=== PATIENT | male | born 2000 | race Caucasian/White ===

== ENCOUNTER 2018-08-05 12:13 | Emergency (ER) | payer BC ==
[2018-08-05 13:19] VITALS: BP 133/73
--- NOTE | 2018-08-05 13:30 | UC ---
Ear Complaint HPI - HPI Summary HPI Summary: Pt c/o sudden onset of reduced hearing from left ear. Pt states he was cleaning his ears last night and thinks he packed the wax in left ear in toward his ear drum. - History of Current Complaint Chief Complaint: UCEar Stated Complaint: LEFT EAR COMPLAINT Time Seen by Provider: 08/05/18 13:26 Hx Obtained From: Patient Onset/Duration: Sudden Onset, Lasting Hours, Still Present Severity Initially: Mild Severity Currently: Mild Pain Intensity: 0 Associated Signs/Symptoms: Positive: Hearing Loss - Allergies/Home Medications Allergies/Adverse Reactions: Allergies Allergy/AdvReac Type Severity Reaction Status Date / Time No Known Allergies Allergy Verified 08/05/18 13:18 Home Medications: Home Medications NK [No Home Medications Reported] 08/05/18 [History Confirmed 08/05/18] PMH/Surg Hx/FS Hx/Imm Hx Previously Healthy: Yes - Surgical History Surgical History: None Surgery Procedure, Year, and Place: none - Family History Known Family History: Positive: Cardiac Disease - Social History Occupation: Student Lives: With Family Alcohol Use: None Substance Use Type: None Smoking Status (MU): Never Smoked Tobacco Have You Smoked in the Last Year: No - Immunization History Vaccination Up to Date: Yes Review of Systems All Other Systems Reviewed And Are Negative: Yes Constitutional: Positive: Negative Skin: Positive: Negative Eyes: Positive: Negative ENT: Positive: Ear Ache - left Respiratory: Positive: Negative Cardiovascular: Positive: Negative Gastrointestinal: Positive: Negative Genitourinary: Positive: Negative Motor: Positive: Negative Neurovascular: Positive: Negative Musculoskeletal: Positive: Negative Neurological: Positive: Negative Psychological: Positive: Negative Is Patient Immunocompromised?: No Physical Exam Triage Information Reviewed: Yes Appearance: Well-Appearing Vital Signs: Initial Vital Signs Temp 98.0 F 08/05/18 13:15 Pulse 73 08/05/18 13:15 Resp 18 08/05/18 13:15 BP 133/73 08/05/18 13:15 Pulse Ox 99 08/05/18 13:15 Vital Signs Reviewed: Yes Eye Exam: Normal ENT: Positive: Other - cerumen impactioin left ear canal Dental Exam: Normal Neck exam: Normal Respiratory Exam: Normal Cardiovascular Exam: Normal Musculoskeletal Exam: Normal Neurological Exam: Normal Psychological Exam: Normal Skin Exam: Normal Ear Complaint Course/Dx - Course Course Of Treatment: moderate amount of cerumen flushed out of left ear canal - Differential Dx/Diagnosis Differential Diagnosis/HQI/PQRI: Cerumen Impaction Provider Diagnosis: Left ear impacted cerumen Discharge - Sign-Out/Discharge Documenting (check all that apply): Patient Departure All imaging exams completed and their final reports reviewed: No Studies - Discharge Plan Condition: Stable Disposition: HOME Patient Education Materials: Cerumen Impaction (ED) Referrals: [facility] [Outside] - If Needed No Primary Care Phys,NOPCP [Primary Care Provider] - - Billing Disposition and Condition Condition: STABLE Disposition: Home
== END 2018-08-05 14:01 | disposition home or self-care (01) ==
LOC: UCCORT 12:13
DX: H61.22 Impacted cerumen, left ear (principal)
CPT/HCPCS: 99202; G0463

== ENCOUNTER 2019-06-24 09:28 | Emergency (ER) | payer BC ==
[2019-06-24 10:44] VITALS: BP 143/79
--- NOTE | 2019-06-24 10:59 | UC ---
Throat Pain/Nasal Rory HPI - HPI Summary HPI Summary: 18 yo with one day history of sore throat, malaise, hx of strep. Coughing, has dysphagia. No fever. - History of Current Complaint Chief Complaint: UCGeneralIllness Stated Complaint: ST Time Seen by Provider: 06/24/19 10:53 Hx Obtained From: Patient Onset/Duration: Sudden Onset, Lasting Days - 1 Severity: Mild Pain Intensity: 4 Cough: Nonproductive Associated Signs & Symptoms: Positive: Dysphagia - Epiglottits Risk Factors Epiglottis Risk Factors: Negative - Allergies/Home Medications Allergies/Adverse Reactions: Allergies Allergy/AdvReac Type Severity Reaction Status Date / Time No Known Allergies Allergy Verified 06/24/19 10:40 Home Medications: Home Medications D-Methorphan/PE/Acetaminophen [Daytime Cold-Flu Liquid] 1 dose PO ONCE 06/24/19 [History Confirmed 06/24/19] PMH/Surg Hx/FS Hx/Imm Hx Previously Healthy: Yes - Surgical History Surgical History: None Surgery Procedure, Year, and Place: none - Family History Known Family History: Positive: Cardiac Disease - Social History Occupation: Employed Part-time, Student Lives: With Family Alcohol Use: Rare Substance Use Type: None Smoking Status (MU): Never Smoked Tobacco Have You Smoked in the Last Year: No - Immunization History Vaccination Up to Date: Yes Review of Systems All Other Systems Reviewed And Are Negative: Yes Constitutional: Positive: Fatigue Skin: Positive: Negative Eyes: Positive: Negative ENT: Positive: Sore Throat Respiratory: Positive: Cough Cardiovascular: Positive: Negative Gastrointestinal: Positive: Negative Genitourinary: Positive: Negative Motor: Positive: Negative Neurovascular: Positive: Negative Musculoskeletal: Positive: Negative Neurological: Positive: Negative Is Patient Immunocompromised?: No Physical Exam Triage Information Reviewed: Yes Appearance: Well-Appearing, No Pain Distress Vital Signs: Initial Vital Signs Temp 98.4 F 06/24/19 10:40 Pulse 89 06/24/19 10:40 Resp 14 06/24/19 10:40 BP 143/79 06/24/19 10:40 Pulse Ox 97 06/24/19 10:40 ENT: Positive: Pharyngeal erythema. Negative: Tonsillar swelling, Tonsillar exudate Neck: Positive: Supple, Nontender, No Lymphadenopathy Respiratory: Positive: Lungs clear, Normal breath sounds Cardiovascular: Positive: RRR, No Murmur Musculoskeletal Exam: Normal Neurological Exam: Normal Psychological Exam: Normal Skin Exam: Normal Diagnostics - Laboratory Lab Results: Rapid strep negative. Throat Pain/Nasal Course/Dx - Course Course Of Treatment: ibuprofen for pain control, symptomatic treatment. - Differential Dx/Diagnosis Differential Diagnosis/HQI/PQRI: Pharyngitis, Sinusitis Provider Diagnosis: Pharyngitis Discharge ED - Sign-Out/Discharge Documenting (check all that apply): Patient Departure All imaging exams completed and their final reports reviewed: No Studies - Discharge Plan Condition: Good Disposition: HOME Patient Education Materials: Pharyngitis (ED) Referrals: No Primary Care Phys,NOPCP [Primary Care Provider] - Additional Instructions: You have a viral illness, and advised treatment is symptomatic, with pain control with ibuprofen and warm water and salt. - Billing Disposition and Condition Condition: GOOD Disposition: Home
[2019-06-24] MEDS ORDERED: Ibuprofen TAB* 600 MG PO ONE (11:09)
== END 2019-06-24 11:19 | disposition home or self-care (01) ==
LOC: UCCORT 09:28
DX: J02.9 Acute pharyngitis, unspecified (principal); R53.83 Other fatigue
CPT/HCPCS: 87651; 99212; A9270-GY; G0463

== ENCOUNTER 2019-11-10 10:40 | Emergency (ER) | payer BC ==
--- OUTSIDE RECORDS SUMMARY | 2019-11-10 11:05 | XMS REPORT | Continuity of Care Document ---
:2000 External Reference #:[id number] Author Name SANDRA Jo Address [address] [place] [address] Problems Description No Information Available Social History Type Date Description Comments Sex Unknown Allergies, Adverse Reactions, Alerts Description No Known Drug Allergies Medications Description No Active Medications Immunizations Description No Information Available Vital Signs Date Vital Result Comment 10/05/2019 9:26am BP Systolic 120 mmHg BP Diastolic 66 mmHg Heart Rate 72 /min Body Temperature 98.6 F Respiratory Rate 16 /min Height 66.5 inches 5'6.50" Weight 197.25 lb BMI (Body Mass Index) 31.4 kg/m2 Right Visual Acuity Distance 20/40 Left Visual Acuity Distance 20/30 Results Description No Information Available Procedures Description No Information Available Medical Devices Description No Information Available Encounters Description No Information Available Assessments Description No Information Available Plan of Treatment 10/05/2019 - Emily JolNalicia Medication:No Active Medications - Comments:Medication Management Patient Understands medications he 's taking? Yes No Are there Barriers to Adherence? Yes No Has the patient been asked about herbal supplements and therapies, andOTC meds? Yes No As always, we strongly encourage a healthy diet and making physical activity a part of your every day life. If you have questions about how or where to start, please contact the office. Functional Status Description No Information Available Mental Status Description No Information Available Referrals Description No Information Available
--- OUTSIDE RECORDS SUMMARY | 2019-11-10 11:05 | XMS REPORT | Continuity of Care Document ---
:2000 External Reference #:[id number] Author Name SANDRA Jo Address [address] [place] [address] Problems Description No Information Available Social History [...] Available Encounters Description No Information Available Assessments Date Code Description Provider 10/05/2019 Z02.1 Encounter for pre-employment examination SANDRA Jo Plan of Treatment 10/05/2019 - SANDRA JoZ02.1 Encounter for pre-employment examinationAllNew Medication:No Active Medications -Comments:No restrictions for employment Functional Status Description No Information Available Mental Status Description No Information Available Referrals Description No Information Available
[2019-11-10 11:11] VITALS: BP 120/66
--- NOTE | 2019-11-10 11:35 | UC ---
Throat Pain/Nasal Rory HPI - HPI Summary HPI Summary: 19-year-old male with sore throat and fever since last evening. He also has a nonproductive cough. - History of Current Complaint Chief Complaint: UCGeneralIllness Stated Complaint: FEVER,ST,COUGH,CONGESTION Time Seen by Provider: 11/10/19 11:08 Hx Obtained From: Patient Onset/Duration: Gradual Onset Severity: Mild Pain Intensity: 0 Cough: Nonproductive Associated Signs & Symptoms: Positive: Fever - Allergies/Home Medications Allergies/Adverse Reactions: Allergies Allergy/AdvReac Type Severity Reaction Status Date / Time No Known Allergies Allergy Verified 11/10/19 11:11 Home Medications: Home Medications D-Methorphan/PE/Acetaminophen [Daytime Cold-Flu Liquid] 1 dose PO ONCE 06/24/19 [History Confirmed 11/10/19] PMH/Surg Hx/FS Hx/Imm Hx Previously Healthy: Yes - Surgical History Surgical History: None Surgery Procedure, Year, and Place: none - Family History Known Family History: Positive: Cardiac Disease - Social History Occupation: Student Alcohol Use: Rare Substance Use Type: None Smoking Status (MU): Never Smoked Tobacco Have You Smoked in the Last Year: No - Immunization History Vaccination Up to Date: Yes Review of Systems All Other Systems Reviewed And Are Negative: Yes Constitutional: Positive: Fever, Chills ENT: Positive: Sore Throat Respiratory: Positive: Cough - Nonproductive cough Neurological/Mental Status: Positive: Headache Is Patient Immunocompromised?: No Physical Exam Triage Information Reviewed: Yes Appearance: Well-Appearing, No Pain Distress, Well-Nourished Vital Signs: Initial Vital Signs Temp 97.9 F 11/10/19 11:07 Pulse 75 11/10/19 11:07 Resp 14 11/10/19 11:07 BP 120/66 11/10/19 11:07 Pulse Ox 98 11/10/19 11:07 Vital Signs Reviewed: Yes Eyes: Positive: Conjunctiva Clear ENT: Positive: Pharyngeal erythema - Mild pharyngeal erythema., Nasal drainage - Clear Nasal coryza, TMs normal, Uvula midline Neck: Positive: Supple, Nontender, No Lymphadenopathy Respiratory: Positive: Lungs clear, Normal breath sounds, No respiratory distress, No accessory muscle use Cardiovascular: Positive: RRR, No Murmur, Pulses Normal, Brisk Capillary Refill Musculoskeletal Exam: Normal Neurological Exam: Normal Psychological Exam: Normal Skin Exam: Normal Throat Pain/Nasal Course/Dx - Course Course Of Treatment: Rapid strep test: Negative Patient is comfortable here and nontoxic. - Differential Dx/Diagnosis Provider Diagnosis: Pharyngitis Discharge ED - Sign-Out/Discharge Documenting (check all that apply): Patient Departure All imaging exams completed and their final reports reviewed: No Studies - Discharge Plan Condition: Good Disposition: HOME Patient Education Materials: Pharyngitis (ED) Forms: *Work Release Referrals: Carmelo Talley MD [Primary Care Provider] - Additional Instructions: Rest, increase fluids, may alternate Tylenol every 4 hours and Motrin every 8 hours for fever. Follow-up with your primary care provider if no improvement in 3 or 4 days. - Billing Disposition and Condition Condition: GOOD Disposition: Home
== END 2019-11-10 11:43 | disposition home or self-care (01) ==
LOC: UCCORT 10:40
DX: J02.9 Acute pharyngitis, unspecified (principal)
CPT/HCPCS: 87651; 99211; G0463

== ENCOUNTER 2019-12-18 11:50 | Emergency (ER) | payer BC ==
[2019-12-18 12:21] VITALS: BP 132/70
--- NOTE | 2019-12-18 12:39 | UC ---
Eye Complaint HPI - HPI Summary HPI Summary: 19-year-old male presents with onset of left eye redness, irritation, and tearing yesterday. Does not wear contacts. Denies fever, chills, eye pain, visual disturbances, photophobia, injury, eye drainage, crusting, or URI symptoms. - History of Current Complaint Chief Complaint: UCEye Stated Complaint: LT EYE Time Seen by Provider: 12/18/19 12:21 Hx Obtained From: Patient Pain Intensity: 5 - Allergies/Home Medications Allergies/Adverse Reactions: Allergies Allergy/AdvReac Type Severity Reaction Status Date / Time No Known Allergies Allergy Verified 12/18/19 12:16 Home Medications: Home Medications Polymyx/Trimethoprim OPTH* [Polytrim OPHTH*] 1 drop LEFT EYE QID 7 Days #1 btl 12/18/19 [Rx] PMH/Surg Hx/FS Hx/Imm Hx Previously Healthy: Yes - Denies significant PMH - Surgical History Surgical History: None Surgery Procedure, Year, and Place: none - Family History Known Family History: Positive: Cardiac Disease - Social History Occupation: Employed Full-time Lives: With Family Substance Use Type: None Smoking Status (MU): Never Smoked Tobacco Have You Smoked in the Last Year: No - Immunization History Vaccination Up to Date: Yes Review of Systems All Other Systems Reviewed And Are Negative: Yes Constitutional: Negative: Fever, Chills Eyes: Positive: Eye Redness. Negative: Blurred Vision, Diplopia, Drainage, Photophobia ENT: Positive: Negative Respiratory: Positive: Negative Cardiovascular: Positive: Negative Gastrointestinal: Positive: Negative Genitourinary: Positive: Negative Musculoskeletal: Positive: Negative Neurological/Mental Status: Positive: Negative Is Patient Immunocompromised?: No Physical Exam - Summary Physical Exam Summary: GENERAL APPEARANCE: Well developed, well nourished, alert and cooperative, and appears to be in no acute distress. EYES: Right conjunctiva clear without drainage. Left conjunctival erythema without purulent drainage. PERRL, EOM intact. Vision is grossly intact. EARS: External auditory canals and tympanic membranes clear, hearing grossly intact. NOSE: No nasal discharge. THROAT: Pharynx normal. No tonsilar inflammation, swelling, exudate, or lesions. Uvula midline. Oral cavity normal. Teeth and gingiva in good general condition. NECK: Neck supple, non-tender without lymphadenopathy. CARDIAC: Normal S1 and S2. No S3, S4 or murmurs. Rhythm is regular. There is no peripheral edema, cyanosis or pallor. Extremities are warm and well perfused. Capillary refill is less than 2 seconds. Peripheral pulses intact. LUNGS: Clear to auscultation without rales, rhonchi, wheezing or diminished breath sounds. ABDOMEN: Positive bowel sounds. Soft, nondistended, nontender. No guarding or rebound. No masses or hepatosplenomegally. MUSKULOSKELETAL: ROM intact to all extremities. No joint erythema or tenderness. Normal muscular development. Normal gait. SKIN: Skin normal color, texture and turgor with no lesions or eruptions. Triage Information Reviewed: Yes Vital Signs: Initial Vital Signs Temp 98.3 F 12/18/19 12: Pulse 76 12/18/19 12:17 Resp 20 12/18/19 12:17 BP 132/70 12/18/19 12:17 Pulse Ox 96 12/18/19 12:17 Vital Signs Reviewed: Yes Eye Complaint Course/Dx - Course Course Of Treatment: 19-year-old male presents with onset of left eye redness, irritation, and tearing yesterday. Does not wear contacts. Denies fever, chills, eye pain, visual disturbances, photophobia, injury, eye drainage, crusting, or URI symptoms. Afebrile. Vital signs stable. Right conjunctiva was clear without drainage. Left eye pain conjunctival erythema without purulent drainage. PERRL, EOM intact. Vision is grossly intact. Remainder of exam was unremarkable. Discussed with the patient that his symptoms could be a viral versus bacterial conjunctivitis although the former was more likely especially without purulent discharge. Discussed the risks and benefits of treating with an antibiotic eyedrop however patient is electing to start at this time. He is to return here or follow up with primary care in 3 days if symptoms are not improving. Anticipatory guidance and warning symptoms were reviewed with the patient. Verbalizes understanding and agrees with plan of care. - Differential Dx/Diagnosis Differential Diagnosis/HQI/PQRI: Conjunctivitis, Corneal Abrasion, Foreign Body , Keratitis, Uveitis Provider Diagnosis: Conjunctivitis Discharge ED - Sign-Out/Discharge Documenting (check all that apply): Patient Departure All imaging exams completed and their final reports reviewed: No Studies - Discharge Plan Condition: Stable Disposition: HOME Prescriptions: Polymyx/Trimethoprim OPTH* [Polytrim OPHTH*] 1 drop LEFT EYE QID 7 Days #1 btl Patient Education Materials: Conjunctivitis (ED) Forms: *Work Release Referrals: Carmelo Talley MD [Primary Care Provider] - 3 Days (If no improvement.) Additional Instructions: Start Polytrim ophthalmic drops. Instill 1 drop into the affected eye(s) 4 times a day for 7 days. To avoid reinfection or spreading infection: * Use washcloths and towels once then launder. * Do not share washcloths or towels with others. * Change your pillow case each morning until you have finished treatment. * You should throw out any eye makeup, especially mascara, and use a new one once you have finished treatment. Follow up here or with your primary care provider in 3 days if no improvement. Seek immediate medical attention in the emergency room if you develop fever greater than 100.5 F, have pain or swelling of the eye, visual disturbances, loss of vision, or any worsening of symptoms. - Billing Disposition and Condition Condition: STABLE Disposition: Home
== END 2019-12-18 12:56 | disposition home or self-care (01) ==
LOC: UCCORT 11:50
DX: H10.32 Unspecified acute conjunctivitis, left eye (principal)
CPT/HCPCS: 99212; G0463